=== PATIENT | female | born 1990 | race Caucasian/White ===

== ENCOUNTER 2019-12-13 00:16 | Emergency (ER) | payer OTHER ==
[~2019-12-13] VITALS: Ht 160 cm; Wt 74.4 kg
[~2019-12-13 00:16] MED LIST: ACETAMINOPHEN-120 ML PO; CIPROFLOXACIN500 M1 PO; IMPLANON IMPLANT; MEDROL DOSPAK21 TAB PO; NORCO 5-325 TA1 EACH PO; ONDANSETRON HCL4 M2 PO; TRINATE TABLET1 TAB PO
[2019-12-13] MEDS ORDERED: ANXIETY MED PO (00:34)
[2019-12-13] MEDS ORDERED: HYDROCODON-ACE1 EAC8 PO (00:51)
[2019-12-13 01:31] VITALS: BP 117/74
== END 2019-12-13 01:32 | disposition home or self-care (01) ==
LOC: M.ERS 00:16
DX: S82.391A Other fracture of lower end of right tibia, initial encounter for closed fracture (principal); F31.9 Bipolar disorder, unspecified; Z91.018 Allergy to other foods; W18.39XA Other fall on same level, initial encounter; Y92.89 Other specified places as the place of occurrence of the external cause; Y93.89 Activity, other specified; Y99.8 Other external cause status